=== PATIENT | female | born 1965 | race Caucasian/White ===

== ENCOUNTER 2019-06-21 04:13 | Emergency (ER) | payer MEDICARE, MEDICAID ==
[2019-06-21] MEDS ORDERED: ONDANSETRON 4 MG TAB.RAPDIS ONE (04:39)
--- NOTE | 2019-06-21 06:57 | NUR ---
PLEASE REFER TO DOWNTIME CHART FOR DOCUMENTATION
== END 2019-07-26 10:27 | disposition left against medical advice (07) ==
LOC: ER 04:13
DX: M25.512 Pain in left shoulder (principal)
CPT/HCPCS: 99283; Q0162

== ENCOUNTER 2023-01-03 12:07 | Emergency (ER) | payer MEDICARE, OTHER ==
[~2023-01-03] VITALS: Ht 154.9 cm; Wt 49.9 kg
[2023-01-03 12:17] VITALS: BP 140/86
[2023-01-03] MEDS ORDERED: IBUP-1955 PO (13:18)
--- NOTE | 2023-01-03 13:29 | NUR ---
patient eloped after being seen by doctor
== END 2023-01-03 13:31 | disposition left against medical advice (07) ==
LOC: ER 12:14
DX: S20.211A Contusion of right front wall of thorax, initial encounter (principal); Z60.2 Problems related to living alone; Z79.899 Other long term (current) drug therapy; W01.0XXA Fall on same level from slipping, tripping and stumbling without subsequent striking against object, initial encounter; Y93.89 Activity, other specified; Y92.89 Other specified places as the place of occurrence of the external cause; Y99.8 Other external cause status
CPT/HCPCS: 71045-TC

== ENCOUNTER 2024-06-12 16:03 | Emergency (ER) | payer MEDICARE, OTHER ==
[~2024-06-12] VITALS: Ht 154.9 cm; Wt 52.2 kg
[~2024-06-12 16:03] MED LIST: IBUP-1955 PO
[2024-06-12] MEDS ORDERED: ACETAMINOPHEN ES 500 MG TABLET ONE (16:43)
[2024-06-12] MEDS ORDERED: CYCLOBENZAPRINE 10 MG TABLET ONE (16:43)
[2024-06-12] MEDS ORDERED: IBUPROFEN 600 MG TABLET ONE (16:44)
[2024-06-12] MEDS: ACETAMINOPHEN ES 500 MG TABLET PO ONE (16:52)
[2024-06-12] MEDS: IBUPROFEN 600 MG TABLET PO ONE (16:52)
[2024-06-12] MEDS: CYCLOBENZAPRINE 10 MG TABLET PO ONE (16:52)
[2024-06-12] MEDS ORDERED: ACET-2605 PO (17:28)
[2024-06-12] MEDS ORDERED: CYCL5TAB PO (17:28)
[2024-06-12] MEDS ORDERED: IBUP-1955 PO (17:28)
[2024-06-12 17:51] VITALS: BP 126/74; TEMP 98; O2SAT 98
== END 2024-06-12 17:51 | disposition home or self-care (01) ==
LOC: ER 16:32
DX: M54.6 Pain in thoracic spine (principal); F41.9 Anxiety disorder, unspecified; F32.A Depression, unspecified; F41.0 Panic disorder [episodic paroxysmal anxiety]; M79.7 Fibromyalgia; Z60.2 Problems related to living alone; V43.52XA Car driver injured in collision with other type car in traffic accident, initial encounter; Y93.89 Activity, other specified; Y92.488 Other paved roadways as the place of occurrence of the external cause; Y99.8 Other external cause status